=== PATIENT | male | born 1950 | race Caucasian/White ===

== ENCOUNTER → 2017-01-15 | Outpatient (CLI) | payer MEDICARE, BC ==
[~2017-01-15] MED LIST: ASPI-515 PO; CHOL100015 PO; CLOP75TA PO; LOSA25TA5 PO; METF500T4 PO; METO25TA91 PO; OMEP40CA6 PO; TEST100V IM; b12 PO
== END | disposition home or self-care (01) ==
LOC: CFH 08:20
PROVIDERS: ATTEND Internal Medicine Cardiovascular Disease
DX: I25.10 Atherosclerotic heart disease of native coronary artery without angina pectoris (principal); I25.2 Old myocardial infarction; I10 Essential (primary) hypertension; I73.9 Peripheral vascular disease, unspecified; M79.669 Pain in unspecified lower leg
CPT/HCPCS: 78452; 93017; A9502; J2785

== ENCOUNTER 2017-06-01 15:03 | Inpatient (IN) | payer MEDICARE, BC ==
[~2017-06-01] VITALS: Ht 177.8 cm; Wt 118.4 kg
[2017-06-01] MEDS ORDERED: SODIUM CHLORIDE FLUSH 10ML SYR IVF ONE (15:30)
[2017-06-01] MEDS ORDERED: ADENOSINE 6 MG/2 ML ONE ×2 (15:56→16:11)
[2017-06-01 16:11] LABS: HEMATOCRIT 52.8 % (39.2-51.8); HEMOGLOBIN 17.7 g/dL (13.7-18.0); WHITE BLOOD COUNT 8.8 x10^3/uL (3.4-10)
[2017-06-01 16:19] LABS: ASPARTATE AMINO TRANSFERASE 18 U/L (15-37); BLOOD UREA NITROGEN 22 mg/dL (7-18)
[2017-06-01 16:25] LABS: IS PT STATUS REG ER OR PRE ER? YES
[2017-06-01] MEDS ORDERED: ADENOSINE 6 MG/2 ML IVPush ONE (16:30)
[2017-06-01] MEDS ORDERED: SODIUM CHLORIDE 0.9%, 500ML IVBOLUS ONE ×2 (16:30→17:30)
[2017-06-01] MEDS ORDERED: METOPROLOL 1 MG/ML, 5ML ONE (16:41)
[2017-06-01] MEDS: METOPROLOL 1 MG/ML, 5ML IVPush ONE ×2 (16:49→21:52)
[2017-06-01] MEDS ORDERED: ASPIRIN 325 MG TABLET PO ONE (17:00)
[2017-06-01] MEDS ORDERED: ASPIRIN 325 MG TABLET ONE (17:26)
[2017-06-01] MEDS ORDERED: HEPARIN 5,000 UNITS/ML, 1ML ONE (17:53)
[2017-06-01] MEDS ORDERED: HEPARIN 25,000 UNITS/500ML PMX 500 ML ONE (17:54)
[2017-06-01] MEDS ORDERED: ONDANSETRON 2MG/ML, 2ML IVPush PRN (18:00)
[2017-06-01] MEDS ORDERED: ONDANSETRON ODT 4 MG PO PRN (18:00)
[2017-06-01] MEDS ORDERED: HEPARIN 5,000 UNITS/ML, 1ML IV PRN (18:00)
[2017-06-01] MEDS ORDERED: HEPARIN 5,000 UNITS/ML, 1ML IV ONE (18:00)
[2017-06-01] MEDS ORDERED: HEPARIN 25,000 UNITS/500ML PMX 500 ML IV PRN (18:00)
[2017-06-01] MEDS ORDERED: DOCUSATE 100 MG CAPSULE PO PRN (18:00)
[2017-06-01] MEDS ORDERED: HYDROcodone/APAP 5/325 TABLET PO PRN (18:00)
[2017-06-01] MEDS ORDERED: BISACODYL 10 MG SUPP PR PRN (18:00)
[2017-06-01] MEDS ORDERED: ACETAMINOPHEN 325 MG TABLET PO PRN (18:00)
[2017-06-01 18:11] LABS: IS PT STATUS REG ER OR PRE ER? YES
[2017-06-01 20:31] VITALS: BP 136/87
[2017-06-01] MEDS: metFORMIN 500 MG TABLET PO SCH (21:55)
[2017-06-01] MEDS: LOSARTAN 25MG TABLET PO SCH (21:55)
[2017-06-01] MEDS: METOPROLOL SUCCINATE 25 MG TAB.ER.24H PO SCH (21:56)
[2017-06-01] MEDS: SODIUM CHLORIDE FLUSH 10ML SYR IVF SCH (21:56)
[2017-06-01] MEDS ORDERED: CALCIUM CARBONATE 500 MG TAB.CHEW PO PRN (22:00)
[2017-06-01 23:59] LABS: IS PT STATUS REG ER OR PRE ER? NO
[2017-06-02 00:32] VITALS: BP 113/69
[2017-06-02 05:17] LABS: HEMATOCRIT 49.3 % (39.2-51.8); HEMOGLOBIN 16.3 g/dL (13.7-18.0); WHITE BLOOD COUNT 7.5 x10^3/uL (3.4-10)
[2017-06-02 05:32] LABS: IS PT STATUS REG ER OR PRE ER? NO
[2017-06-02 05:48] LABS: BLOOD UREA NITROGEN 19 mg/dL (7-18)
[2017-06-02 07:23] VITALS: BP 152/100
[2017-06-02] MEDS: metFORMIN 500 MG TABLET PO SCH (08:57)
[2017-06-02] MEDS: METOPROLOL SUCCINATE 25 MG TAB.ER.24H PO SCH (08:58)
[2017-06-02] MEDS: LOSARTAN 25MG TABLET PO SCH (08:58)
[2017-06-02] MEDS: SODIUM CHLORIDE FLUSH 10ML SYR IVF SCH (08:58)
[2017-06-02] MEDS ORDERED: ASPIRIN 81 MG TABLET EC PO SCH (09:00)
== END 2017-06-02 12:29 | disposition home or self-care (01) | DRG 281 ==
LOC: ED 15:49 → EDIP 16:58 → 5SO 20:17
PROVIDERS: ADMIT Internal Medicine; ATTEND Internal Medicine
DX: I47.1 Supraventricular tachycardia (principal); I21.4 Non-ST elevation (NSTEMI) myocardial infarction; I13.0 Hypertensive heart and chronic kidney disease with heart failure and stage 1 through stage 4 chronic kidney disease, or unspecified chronic kidney disease; N17.9 Acute kidney failure, unspecified; I95.9 Hypotension, unspecified; E88.81 Metabolic syndrome and other insulin resistance; I25.82 Chronic total occlusion of coronary artery; I50.42 Chronic combined systolic (congestive) and diastolic (congestive) heart failure; E11.22 Type 2 diabetes mellitus with diabetic chronic kidney disease; E78.5 Hyperlipidemia, unspecified; E66.9 Obesity, unspecified; Z68.37 Body mass index [BMI] 37.0-37.9, adult; G47.33 Obstructive sleep apnea (adult) (pediatric); I25.10 Atherosclerotic heart disease of native coronary artery without angina pectoris; I25.5 Ischemic cardiomyopathy; K21.9 Gastro-esophageal reflux disease without esophagitis; N18.3 Chronic kidney disease, stage 3 (moderate); Z79.82 Long term (current) use of aspirin; I25.2 Old myocardial infarction; Z82.49 Family history of ischemic heart disease and other diseases of the circulatory system; Z87.891 Personal history of nicotine dependence
CPT/HCPCS: 36415; 71010; 80048; 80053; 83735; 84443; 84484; 85025; 85520; 85610; 85730; 93005; 93306; 96365; 96366; 96375; 99291; J0153; J1644; J7040

== ENCOUNTER 2017-06-08 21:48 | Emergency (ER) | payer MEDICARE, BC ==
[~2017-06-08] VITALS: Ht 177.8 cm; Wt 119.6 kg
[2017-06-08] MEDS ORDERED: ADENOSINE 6 MG/2 ML ONE ×2 (21:57→22:09)
[2017-06-08] MEDS ORDERED: LOSA25TA5 PO (22:16)
[2017-06-08] MEDS ORDERED: EVOLOCUMAB (22:16)
[2017-06-08] MEDS ORDERED: ADENOSINE 6 MG/2 ML IVPush ONE ×3 (22:30)
[2017-06-08] MEDS ORDERED: SODIUM CHLORIDE 0.9% 1,000ML IVBOLUS ONE (22:30)
[2017-06-08 22:34] LABS: HEMOGLOBIN 17.1 g/dL (13.7-18.0); WHITE BLOOD COUNT 7.9 x10^3/uL (3.4-10)
[2017-06-08 22:43] LABS: BLOOD UREA NITROGEN 32 mg/dL (7-18)
[2017-06-08 23:29] VITALS: BP 117/75
== END 2017-06-08 23:32 | disposition home or self-care (01) ==
LOC: ED 22:30
DX: R00.2 Palpitations (principal); I47.1 Supraventricular tachycardia; I25.10 Atherosclerotic heart disease of native coronary artery without angina pectoris
CPT/HCPCS: 36415; 80048; 82040; 83735; 85025; 93005; 96361; 96374; 99285; J0153; J7030

== ENCOUNTER 2017-06-19 07:36 | Day surgery (SDC) | payer MEDICARE, BC ==
[2017-06-18 14:07] LABS: HEMATOCRIT 52.7 % (39.2-51.8); HEMOGLOBIN 18.1 g/dL (13.7-18.0); WHITE BLOOD COUNT 6.4 x10^3/uL (3.4-10)
[2017-06-18 14:19] LABS: ASPARTATE AMINO TRANSFERASE 17 U/L (15-37); BLOOD UREA NITROGEN 25 mg/dL (7-18)
[~2017-06-19] VITALS: Ht 177.8 cm; Wt 118.1 kg
[~2017-06-19 07:36] MED LIST changes: +ASPI-496 PO; +EVOL140S IM; +EVOLOCUMAB; +METO25TA35 PO; +OMEP-110 PO
[2017-06-19 08:02] VITALS: BP 127/89
[2017-06-19] MEDS ORDERED: SODIUM CHLORIDE 0.9% 1,000 ML IV SCH (08:22)
[2017-06-19] MEDS ORDERED: MIDAZOLAM 1 MG/ML, 5ML ONE (08:48)
[2017-06-19] MEDS ORDERED: FENTANYL PF 100 MCG/2ML ONE ×2 (08:48→09:59)
[2017-06-19] MEDS ORDERED: ISOPROTERENOL 0.2MG/ML, 5ML ONE (09:01)
[2017-06-19] MEDS ORDERED: LIDOCAINE 2%, 20ML ONE (09:01)
[2017-06-19] MEDS ORDERED: ADENOSINE 6 MG/2 ML ONE (09:01)
[2017-06-19] MEDS ORDERED: DEXAMETHASONE 4 MG/ML, 1ML ONE (09:05)
[2017-06-19] MEDS ORDERED: ONDANSETRON 2MG/ML, 2ML ONE (09:05)
[2017-06-19] MEDS ORDERED: PROPOFOL 10 MG/ML, 20ML ONE (09:05)
[2017-06-19] MEDS ORDERED: SUCCINYLCHOLINE 20 MG/ML, 10ML ONE (09:05)
[2017-06-19] MEDS ORDERED: HYDROmorphone 1 MG/ML, 1ML IV PRN (11:00)
[2017-06-19] MEDS ORDERED: ACETAMINOPHEN 325 MG TABLET PO PRN (11:00)
[2017-06-19] MEDS ORDERED: MIDAZOLAM 1 MG/ML, 2ML IV PRN (11:00)
[2017-06-19] MEDS ORDERED: ONDANSETRON 2MG/ML, 2ML IVPush PRN (11:00)
[2017-06-19] MEDS ORDERED: OXYcodone 5 MG/5 ML ORAL.SOL UDC PO PRN (11:00)
[2017-06-19] MEDS ORDERED: FENTANYL PF 100 MCG/2ML IV PRN (11:00)
== END 2017-06-19 14:40 | disposition home or self-care (01) ==
LOC: CACL 07:36
PROVIDERS: ATTEND Internal Medicine Cardiovascular Disease
DX: I47.1 Supraventricular tachycardia (principal); I25.10 Atherosclerotic heart disease of native coronary artery without angina pectoris; I10 Essential (primary) hypertension; Z79.82 Long term (current) use of aspirin
CPT/HCPCS: 36415; 71020; 80053; 85025; 93613; 93621; 93623; 93653; C1730; C1766; C1894; C2630; J0330; J1100; J2250; J2405; J2704; J3010; J3490; J0153

== ENCOUNTER 2017-06-19 16:35 | Emergency (ER) | payer MEDICARE, BC ==
[~2017-06-19] VITALS: Ht 177.8 cm; Wt 118.3 kg
[2017-06-19 17:29] LABS: HEMATOCRIT 51.5 % (39.2-51.8); HEMOGLOBIN 17.4 g/dL (13.7-18.0); WHITE BLOOD COUNT 8.7 x10^3/uL (3.4-10)
[2017-06-19 17:46] LABS: BLOOD UREA NITROGEN 27 mg/dL (7-18)
[2017-06-19 18:14] VITALS: BP 124/78
== END 2017-06-19 18:16 | disposition home or self-care (01) ==
LOC: ED 18:08
DX: R00.0 Tachycardia, unspecified (principal); R00.2 Palpitations; I25.2 Old myocardial infarction; I25.10 Atherosclerotic heart disease of native coronary artery without angina pectoris; Z98.890 Other specified postprocedural states
CPT/HCPCS: 36415; 71010; 80048; 82040; 83735; 84439; 84443; 85025; 93005; 99285

== ENCOUNTER 2018-10-17 09:44 | Outpatient (CLI) | payer MEDICARE, BC ==
[~2018-10-17 09:44] MED LIST changes: +LOSA25TA25 PO; -LOSA25TA5 PO; +METF500T17 PO; -METF500T4 PO
== END 2018-10-17 23:59 | disposition home or self-care (01) ==
LOC: CVU 09:44
PROVIDERS: ATTEND Internal Medicine Cardiovascular Disease
DX: R06.00 Dyspnea, unspecified (principal); I25.2 Old myocardial infarction; I25.10 Atherosclerotic heart disease of native coronary artery without angina pectoris; I10 Essential (primary) hypertension; E78.5 Hyperlipidemia, unspecified; G47.30 Sleep apnea, unspecified; E11.9 Type 2 diabetes mellitus without complications
CPT/HCPCS: 0399T; 93306

== ENCOUNTER → 2018-10-21 | Outpatient (CLI) | payer MEDICARE, BC ==
[~2018-10-21] MED LIST changes: +REGADENOSON 0.4 MG/5 ML SYRINGE ONE
== END | disposition home or self-care (01) ==
LOC: CFH 12:21
PROVIDERS: ATTEND Physician Assistant Medical
DX: I25.5 Ischemic cardiomyopathy (principal); I10 Essential (primary) hypertension; I25.2 Old myocardial infarction
CPT/HCPCS: 78452; 93017; A9502; J2785

== ENCOUNTER 2019-05-23 16:03 | Emergency (ER) | payer MEDICARE, BC ==
[~2019-05-23] VITALS: Ht 177.8 cm; Wt 122.8 kg
[2019-05-23 20:37] VITALS: BP 140/90
== END 2019-05-23 21:01 | disposition home or self-care (01) ==
LOC: ED 20:39
DX: R07.89 Other chest pain (principal); R00.2 Palpitations; I25.2 Old myocardial infarction; I11.9 Hypertensive heart disease without heart failure
CPT/HCPCS: 36415; 71045; 80053; 83690; 84484; 85025; 93005; 99284

== ENCOUNTER → 2020-02-12 | Outpatient (CLI) | payer MEDICARE, BC ==
[~2020-02-12] MED LIST changes: -EVOL140S IM; +EVOL140S2 IM; +OMEP40CA42 PO; -OMEP40CA6 PO; -REGADENOSON 0.4 MG/5 ML SYRINGE ONE
== END | disposition home or self-care (01) ==
LOC: CVU 08:31
PROVIDERS: ATTEND Internal Medicine Cardiovascular Disease
DX: I11.9 Hypertensive heart disease without heart failure (principal); I25.5 Ischemic cardiomyopathy
CPT/HCPCS: 93306; 93356

== ENCOUNTER → 2020-05-06 | Outpatient (CLI) | payer MEDICARE, BC | END | disposition home or self-care (01) | LOC: CVU 07:40 | PROVIDERS: ATTEND Internal Medicine Cardiovascular Disease | DX: I65.21 Occlusion and stenosis of right carotid artery (principal) | CPT/HCPCS: 93880 ==